=== PATIENT | female | born 1990 | race Caucasian/White ===

== ENCOUNTER → 2022-10-11 | Outpatient (CLI) | payer OTHER ==
[2022-10-11 15:41] LABS: ALT 15 U/L (8-44); AST 24 U/L (13-35); African American GFR (CKD) 132.9 (60.0-200.0); Albumin 4.3 g/dL (3.8-4.9); Albumin/Globulin Ratio 1.59 (1.60-3.17); Alkaline Phosphatase 63 U/L (41-126); Blood Urea Nitrogen 9.1 mg/dL (9.0-27.0); Calcium 9.3 mg/dL (8.7-10.3); Carbon Dioxide 28.6 mmol/L (20.0-27.5); Chloride 101 mmol/L (96-109); Globulin 2.7 g/dL (1.6-3.3); Glucose 107 mg/dL (70-110); Non-African American GFR(CKD) 114.6 (60.0-200.0); Potassium 4.2 mmol/L (3.5-5.5); Sodium 140 mmol/L (135-145)
[2022-10-11 15:54] LABS: Hepatitis B Surface Antibody Reactive (Nonreactive)
[2022-10-11 16:19] LABS: HCG,Quantitative Serum <3.0 (0.0-6.0)
[2022-10-11 18:16] LABS: Hepatitis B Surface Antigen Nonreactive (Nonreactive)
[2022-10-11 18:24] LABS: HIV 2 AB Non-Reactive (Non-Reactive); HIV AB P24 Non-Reactive (Non-Reactive); HIV P24 AG Non-Reactive (Non-Reactive)
[2022-10-11 20:03] LABS: Basophils # (A) 0.08 X 10*3/uL (0.00-0.10); Basophils % (A) 1.3 %; Eosinophils # (A) 0.34 X 10*3/uL (0.04-0.35); Eosinophils % (A) 5.6 %; HGB 12.7 g/dL (12.0-15.0); Immature Grans, Automated 0.2 %; Lymphocytes # (A) 1.85 X 10*3/uL (0.90-5.00); Lymphocytes % (A) 30.4 %; MCH 30.8 pg (27.0-32.0); MCHC 32.6 g/dL (32.0-37.0); MCV 94.7 fL (80.0-97.0); Mean Platelet Volume 9.9 fL (9.5-12.2); Monocytes # (A) 0.53 X 10*3/uL (0.20-1.00); Monocytes % (A) 8.7 %; NRBC Per 100 WBC 0 /100 WBCS (0.0-0.0); Neutrophils # (A) 3.27 X 10*3/uL (1.80-7.70); Neutrophils % (A) 53.8 %; Platelet Count 366 X 10*3/uL (140-440); RBC 4.12 X 10*6/uL (4.10-5.20); RDW 12.7 % (11.5-14.5); WBC 6.08 X 10*3/uL (4.50-10.00)
== END | disposition home or self-care (01) ==
LOC: LABWHC1 10:56
PROVIDERS: ATTEND Physician Assistant
DX: F11.20 Opioid dependence, uncomplicated (principal)
CPT/HCPCS: 36415; 80053; 84702; 85025; 86704; 86706; 87340; 87390

== ENCOUNTER 2023-02-12 10:29 | Emergency (ER) | payer OTHER ==
--- NOTE | 2023-02-12 11:12 | XR ---
EXAMINATION TYPE: XR knee complete LT DATE OF EXAM: 02/12/2023 11:07 AM INDICATION: Patient age:Female; 32 years old; Reason for study: pain; PHH. COMPARISON: None. TECHNIQUE: The Left knee(s) was examined in Frontal, lateral and oblique projections. FINDINGS: No evidence of any acute osseous pathology, soft tissue swelling, or joint effusion is no rojas. IMPRESSION: No acute osseous pathology.
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
[2023-02-12 11:55] VITALS: BP 139/99; PULSE 60; RESP 18; TEMP 98
[2023-02-12] MEDS ORDERED: IBUPROFEN 600 MG TAB PO STA (11:59)
== END 2023-02-12 12:08 | disposition home or self-care (01) ==
LOC: EC 10:29
DX: S83.92XA Sprain of unspecified site of left knee, initial encounter (principal); F17.200 Nicotine dependence, unspecified, uncomplicated; X50.1XXA Overexertion from prolonged static or awkward postures, initial encounter
CPT/HCPCS: 99283